=== PATIENT | female | born 1975 | race Caucasian/White ===

== ENCOUNTER 2021-05-29 15:06 | Emergency (ER) | payer OTHER, SELFPAY ==
[2021-05-29 15:16] VITALS: BP 137/92; PULSE 85; RESP 16; TEMP 36.3; O2SAT 99
--- NOTE | 2021-05-29 17:00 | PC.NURSE ---
pt came to intake desk - states not waiting to be seen, take my name off the list . Walked out of ER steady gait to car in [address]
== END 2021-05-30 04:34 | disposition left against medical advice (07) ==
LOC: ANHED 17:20
DX: R51.9 Headache, unspecified (principal)
CPT/HCPCS: 99199

== ENCOUNTER 2023-01-09 06:38 | Outpatient (CLI) | payer BC, SELFPAY ==
--- NOTE | ~2023-01-09 | MR_ITS ---
MRI of the brain Clinical History: Headache Technique: Axial and sagittal T1-weighted images were acquired. These were followed by axial T2-weigh demetri, diffusion weighted, gradient, and FLAIR images. Findings: No abnormal signal seen in the brain parenchyma. No acute infarct, intracranial hemorrhage, or mass lesion. Ventricles and subarachnoid spaces are unremarkable. Orbits are unremarkable. Paranasal sinuses and m astoid air cells are clear. Major intracranial flow voids are intact. Sagittal midline structures are intact. IMPRESSION: Unremarkable exam. Reviewed, dictated and finalized at location M. IMPRESSION: Unremarkable exam.
== END 2023-01-09 06:39 | disposition home or self-care (01) ==
PROVIDERS: PCP Family Medicine; Visit Provider Family Medicine
DX: G43.009 Migraine without aura, not intractable, without status migrainosus (principal)
CPT/HCPCS: 70551